=== PATIENT | female | born 1990 | race Two or more races ===

== ENCOUNTER → 2022-10-17 | Outpatient (CLI) | payer OTHER | END | disposition home or self-care (01) | LOC: SONOGRAMA 11:08 | PROVIDERS: ATTEND Pathology Anatomic Pathology & Clinical Pathology | DX: D34 Benign neoplasm of thyroid gland (principal); E06.3 Autoimmune thyroiditis; E04.1 Nontoxic single thyroid nodule ==

== ENCOUNTER 2023-07-31 05:10 | Day surgery (SDC) | payer OTHER ==
[2023-07-28 08:39] LABS: URINE APPEARANCE Clear; URINE BILIRRUBIN Negative (NEGATIVE); URINE BLOOD Negative; URINE COLOR Yellow; URINE GLUCOSE Negative (NEGATIVE); URINE LEUKOCYTE Negative; URINE NITRATE Negative; URINE PROTEIN Negative (NEGATIVE); URINE UROBILINOGEN 0.2 E.U./dl
[2023-07-28 08:40] LABS: URINE BACTERIA 47.8 uL (0.0-1933); URINE EPITHELIAL CELLS 4.4 uL (0.0-38.8); URINE RBC 6.1 uL (0.0-20.8)
[2023-07-28 08:48] LABS: HEMATOCRIT 41.3 % (36.0-45.00); HEMOGLOBIN 14.6 g/dL (12.0-15.00); MEAN CORPUSCULAR HEMOGLOBIN 29.6 pg (27.00-32.0); MEAN CORPUSCULAR HGB CONC 35.3 g/dl (32.0-36.0); PLATELET COUNT 204 K/uL (150-450); RED BLOOD COUNT 4.92 M/uL (4.00-6.00)
[2023-07-28 08:51] LABS: URINE WBC 0.4 uL (0.0-23.2)
[2023-07-28 09:21] LABS: INR 0.95; PARTIAL THROMBOPLASTIN TIME 30.6 SECONDS (22.0-34.0)
[2023-07-28 09:38] LABS: ALBUMIN 3.7 gm/dL (3.4-5.0); BILIRUBIN TOTAL 0.55 mg/dL (0.3-1.2); CALCIUM 9.3 mg/dL (8.5-10.1); CREATININE SERUM 0.79 mg/dL (0.55-1.02); GFR 83.81; GLOBULINA 2.9 G/DL (2.4-3.5); POTASSIUM 4.05 mEq/L (3.5-5.1); TOTAL PROTEIN 6.6 gm/dL (6.4-8.2); TSH 2.44 uIU/mL (0.358-3.74)
[~2023-07-31 05:10] MED LIST: CRESTOR10 MG PO; SYNTHROID100 MCG PO
[2023-07-31] MEDS ORDERED: NAPR500T14 PO (08:40)
== END 2023-07-31 14:00 | disposition home or self-care (01) ==
LOC: CIR.AMB 05:10
PROVIDERS: ATTEND Obstetrics & Gynecology
DX: N87.0 Mild cervical dysplasia (principal); Z20.822 Contact with and (suspected) exposure to COVID-19; I10 Essential (primary) hypertension

== ENCOUNTER 2025-05-19 10:28 | Outpatient (CLI) | payer OTHER ==
[~2025-05-19 10:28] MED LIST changes: +NAPR500T14 PO
== END 2025-05-19 12:24 | disposition home or self-care (01) ==
LOC: PRENATAL 10:28
PROVIDERS: ATTEND Obstetrics & Gynecology Maternal & Fetal Medicine
DX: O44.00 Complete placenta previa NOS or without hemorrhage, unspecified trimester (principal); O99.283 Endocrine, nutritional and metabolic diseases complicating pregnancy, third trimester; O09.523 Supervision of elderly multigravida, third trimester; O34.13 Maternal care for benign tumor of corpus uteri, third trimester; Z3A.21 21 weeks gestation of pregnancy